=== PATIENT | female | born 1985 | race Caucasian/White ===

== ENCOUNTER 2023-04-14 09:31 | Emergency (ER) | payer BC, SELFPAY ==
[2023-04-14 09:42] VITALS: BP 143/95; PULSE 96; RESP 18; TEMP 36.7; O2SAT 98; BMI 46.3
--- NOTE | 2023-04-14 10:37 | ED_ITS ---
HPI - Abdominal Pain General: Chief Complaint: Abdominal Pain Stated Complaint: abd pain Time Seen by Provider: 04/14/23 10:15 Source: patient Mode of arrival: ambulatory History of Present Illness: 38-year-old female presents emergency complaining of right upper quadrant abdominal pain she said for the last 3 days she has been an ongoing issue she is vacationing in the area before she had come here for vacation she had seen her primary care doctor the done lab work including liver functions and pancreas enzymes which she reports are normal. She been scheduled for a gallbladder ultrasound has not yet been completed. She is noticed just about anything she eats seems to worsen her symptoms. She denies any fever dysuria urgency or frequency she is currently having her period but has no pelvic pain or cramping. She denies any nausea vomiting diarrhea no hematochezia or melena. MD elicited complaint: abdominal pain Onset (ago): week(s) Pain Consistency: constant Location: RUQ Severity: severe Quality: cramping Radiation: none Exacerbating factors: nothing Relieving factors: nothing Associated Symptoms: Reports bloating and nausea; Denies anorexia, chills, GI cramping, dyspepsia, dysuria, fever(s), heartburn, hematuria, loose stools, poor appetite, syncope and vomiting Review of Systems Const: Denies: fever(s) or chills Card: Denies: chest pain, palpitations or syncope Resp: Denies: dyspnea, productive cough or non-productive cough GI: Reports: abdominal pain, nausea and bloating; Denies: vomiting, heartburn or GI cramping : Denies: dysuria, urinary frequency, urinary urgency or hematuria Musc: Denies: neck pain or back pain Skin/Breast: Denies: rash or pruritus Physical Exam Const: GENERAL APPEARANCE: cooperative and comfortable ORIENTATION/CONSCIOU SNESS: Yes awake, Yes oriented to person, Yes oriented to place and Yes oriented to time HENMT: COMMON NORMALS: normocephalic, atraumatic and hearing grossly normal bilaterally HEAD & SCALP: normocephalic and atraumatic Resp: COMMON NORMALS: normal respiratory effort, No retractions, No use of accessory muscles and clear to auscultation bilaterally AUSCULTATION: clear to auscultation bilaterally Cardio: COMMON NORMALS: regular rate, regular rhythm and No murmurs present (Cardio) RATE: regular rate RHYTHM: regular rhythm GI: COMMON NORMALS: Soft to palpation and No hepatosplenomegaly present AUSCULTATION: Yes normoactive bowel sounds PALPATION: Yes Soft to palpation, No Tenderness to palpation present (GI), No Guarding due to palpation present (GI) and Yes No hepatosplenomegaly present Extremity: COMMON NORMALS: normal to inspection, capillary refill normal, no clubbing, cyanosis or edema, no calf tenderness and no pedal edema Neuro: SENSORIUM/ORIENTATION: Yes oriented to person, Yes oriented to place and Yes oriented to time Skin: COMMON NORMALS: no rashes or lesions noted GENERAL SKIN EXAM: no rashes or lesions noted Course Vital Signs: Vital signs: Vital Signs Temperature 98.1 F 04/14/23 17:07 Pulse Rate 91 04/14/23 17:07 Respiratory Rate 16 04/14/23 17:07 Blood Pressure 139/83 04/14/23 17:07 Pulse Oximetry 99 04/14/23 17:07 Oxygen Delivery Me thod Room Air 04/14/23 09:42 MDM - Abdominal Pain Medical Decision Making Patient has biliary colic symptoms she did have some blood in her urine CT did not show any evidence of nephrolithiasis or renal ureteral or bladder pathology. We will discharge patient home recommend she follow-up with her primary care doctor she will likely need a HIDA scan ultrasound of the gallbladder was negative for cholelithiasis she is symptom-free at this time discussed things to avoid in her diet that may exacerbate gave her hydrocodone and antiemetics to use as needed. Medical Records I reviewed the patient's medical records. Lab Data I reviewed the patient's lab results. 04/14/23 10:54 04/14/23 10:54 Labs/Radiology: Radiology Impressions Gallbladder Ultrasound 04/14/23 11:29 IMPRESSION: No acute sonographic findings. Abdomen/Pelvis CT 04/14/23 15:36 IMPRESSION: 1. Limited noncontrast examination without CT evidence of acute intra-abdominal or pelvic pathology. 2. Mild hepatomegaly. 3. Additional findings, as above. Laboratory Results WBC 9.7 10^3/uL (4.0-10.0) 04/14/23 10:54 RBC 4.43 10^6/uL (4.1-5.3) 04/14/23 10:54 Hgb 12.9 g/dL (11.5-15.3) 04/14/23 10:54 Hct 39.7 % (37.0-47.0) 04/14/23 10:54 MCV 89.6 fl (81-99) 04/14/23 10:54 MCH 29.1 pg (28.0-34.0) 04/14/23 10:54 MCHC 32.5 g/dL (30.0-36.0) 04/14/23 10:54 RDW 13.2 % (12.1-15.1) 04/14/23 10:54 Plt Count 372 10^3/cmm (130-400) 04/14/23 10:54 MPV 8.4 fL (7.4-10.4) 04/14/23 10:54 Neut % (Auto) 64.9 % 04/14/23 10:54 Lymph % (Auto) 25.0 % 04/14/23 10:54 [place] % (Auto) 8.9 % 04/14/23 10:54 Eos % (Auto) 0.6 % 04/14/23 10:54 Baso % (Auto) 0.2 % 04/14/23 10:54 Neut # (Auto) 6.27 10^3/uL (1.8-7.7) 04/14/23 10:54 Lymph # (Auto) 2.4 10^3/uL (0.8-4.8) 04/14/23 10:54 [place] # (Auto) 0.9 10^3/uL (0.2-0.9) 04/14/23 10:54 Eos # (Auto) 0.1 10^3/uL (0.0-0.8) 04/14/23 10:54 Baso # (Auto) 0.0 10^3/uL (0.0-0.1) 04/14/23 10:54 Nucleated RBC % (auto) 0 % 04/14/23 10:54 Nucleated RBCs # 0.0 /100WBC 04/14/23 10:54 Sodium 135 mmol/L (136-145) L 04/14/23 10:54 Potassium 3.4 mmol/L (3.5-5.1) L 04/14/23 10:54 Chloride 97 mmol/L (98-107) L 04/14/23 10:54 Carbon Dioxide 27 mmol/L (22-29) 04/14/23 10:54 Anion Gap 14.4 (5-19) 04/14/23 10:54 BUN 11 mg/dL (6-20) 04/14/23 10:54 Creatinine 0.7 mg/dL (0.5-0.9) 04/14/23 10:54 GFR Calculation 93.6 mL/min (90-130) 04/14/23 10:54 Glucose 98 mg/dL (65-115) 04/14/23 10:54 POC Glucose 71 mg/dL (70-110) 04/14/23 15:11 Calculated Osmolality 279 mOsm/kg (285-295) L 04/14/23 10:54 Calcium 9.0 mg/dL (8.5-10.5) 04/14/23 10:54 Total Bilirubin 0.2 mg/dL (0.15-1.2) 04/14/23 10:54 AST 12 U/L (0-32) 04/14/23 10:54 ALT 15 U/L (0-33) 04/14/23 10:54 Alkaline Phosphatase 77 U/L (35-105) 04/14/23 10:54 Total Protein 8.0 g/dL (6.6-8.7) 04/14/23 10:54 Albumin 4.3 g/dL (3.5-5.2) 04/14/23 10:54 Globulin 3.7 g/dL (1.3-4.6) 04/14/23 10:54 Lipase 27 U/L (13-60) 04/14/23 10:54 HCG, Qual Negative (Negative) 04/14/23 10:54 Urine Color Straw (Yellow) 04/14/23 14:00 Urine Appearance Clear (CLEAR) 04/14/23 14:00 Urine pH 7 (5-7) 04/14/23 14:00 Ur Specific [place] 1.010 (1.005-1.030) 04/14/23 14:00 Urine Protein Neg (Negative) 04/14/23 14:00 Urine Glucose (UA) Norm (Normal) 04/14/23 14:00 Urine Ketones Negative (Negative) 04/14/23 14:00 Urine Blood 3+ (Negative) H 04/14/23 14:00 Urine Nitrate Negative (Negative) 04/14/23 14:00 Urine Bilirubin Neg (Negative) 04/14/23 14:00 Urine Urobilinogen Norm mg/dL (Negative) 04/14/23 14:00 Ur Leukocyte Esterase Negative (Negative) 04/14/23 14:00 Urine RBC 25-40 /hpf (0-2) H 04/14/23 14:00 Urine WBC None /hpf (0-5) 04/14/23 14:00 Ur Squamous Epith Cells 0-4 /hpf (0-5) H 04/14/23 14:00 Amorphous Sediment Not Reportable 04/14/23 14:00 Urine Bacteria Trace /hpf (NONE) 04/14/23 14:00 Discharge Plan Discharge Patient Disposition: Home Clinical Impression: Biliary colic Condition: Stable Prescriptions: New hydrocodone-acetaminophen 5-325 mg tablet 1 tab PO Q6H PRN (Reason: pain) Qty: 20 0RF promethazine 25 mg tablet 25 mg PO Q6H PRN (Reason: nausea and vomiting) Qty: 20 0RF No Action omeprazole 40 mg capsule,delayed release(DR/EC) 40 mg PO DAILY ergocalciferol (vitamin D2) 1,250 mcg (50,000 unit) capsule 1,250 mcg PO Q7D Rx Instructions: ON SUNDAY azelastine 137 mcg (0.1 %) aerosol,spray 1 spray INTRANASAL BID fluticasone propionate 50 mcg/actuation spray,suspension 1 spray INTRANASAL DAILY Claritin 10 mg Tablet 10 mg PO DAILY PRN (Reason: Allergy Symptoms) bupropion HCl 150 mg tablet extended release 24 hr 150 mg PO DAILY Women's Daily Formula 18 mg iron-400 mcg-500 mg Ca Tablet 1 tab PO DAILY Discharge Orders: Discharge ED (Routine); Ordered 04/14/23 Ordered By: Alexandre Degroot Discharge Diet: As Directed Patient Instructions: Biliary Colic (ED), Biliary Dyskinesia (DC), Opioid S afety, Pain Management Coding Level of Care Code ED [facility] Teacher for Kwasi Velazquez
[2023-04-14] MEDS: sodium chloride 0.9% 1,000 ML 999 ML IV (10:56)
[2023-04-14] MEDS: ondansetron 2 mg/ML SDV 2 mL 4 MG IVP (10:56)
[2023-04-14] MEDS: morphine 4 mg/mL SDV 1 mL IVP (10:56)
[2023-04-14 11:04] LABS: Basophils % 0.2 %; Eosinophils # 0.1 10^3/uL (0.0-0.8); Eosinophils % 0.6 %; Hematocrit 39.7 % (37.0-47.0); Hemoglobin 12.9 g/dL (11.5-15.3); Lymphocytes # 2.4 10^3/uL (0.8-4.8); Mean Corpuscular HGB Conc 32.5 g/dL (30.0-36.0); Mean Corpuscular Hemoglobin 29.1 pg (28.0-34.0); Mean Corpuscular Volume 89.6 fl (81-99); Mean Platelet Volume 8.4 fL (7.4-10.4); Monocytes # 0.9 10^3/uL (0.2-0.9); Monocytes % 8.9 %; Neutrophils # 6.27 10^3/uL (1.8-7.7); Neutrophils % 64.9 %; Nucleated Red Blood Cells % 0 %; Platelet Count 372 10^3/cmm (130-400); Red Blood Count 4.43 10^6/uL (4.1-5.3); Red Cell Distribution Width 13.2 % (12.1-15.1); White Blood Count 9.7 10^3/uL (4.0-10.0)
[2023-04-14 11:17] VITALS: BP 129/85; RESP 16; O2SAT 96
--- NOTE | 2023-04-14 11:29 | USR_ITS ---
PROCEDURE INFORMATION: Exam: US Abdomen, Limited; Right Upper Quadrant Exam date and time: 04/14/2023 12:01 PM Age: 38 years old Clinical indication: Abdominal pain; Generalized; Additional info: Abd pain TECHNIQUE: Imaging protocol: Real time ultrasound of the abdomen with image documentation. Limited exam focused on the right upper quadrant. COMPARISON: No relevant prior studies available. FINDINGS: Liver: Unremarkable. Gallbladder: No gallstones. No gallbladder wall thickening or pericholecystic fluid. Negative sonographic Maher's sign, as per the performing education and training manager. Biliary ducts: Normal. No stones. No dilation. Pancreas: Unremarkable as visualized. Right kidney: No mass. No definite stones. No hydronephrosis. US/US gall bladder [id number] IMPRESSION: No acute sonographic findings.
[2023-04-14 11:30] LABS: Alanine Aminotransferase 15 U/L (0-33); Albumin Level 4.3 g/dL (3.5-5.2); Alkaline Phosphatase 77 U/L (35-105); Anion Gap 14.4 (5-19); Aspartate Amino Transferase 12 U/L (0-32); Blood Urea Nitrogen 11 mg/dL (6-20); Carbon Dioxide 27 mmol/L (22-29); Chloride 97 mmol/L (98-107); Globulin 3.7 g/dL (1.3-4.6); Glomerular Filtration Rate 93.6 mL/min (90-130); Glucose 98 mg/dL (65-115); HCG, Serum Qual Negative (Negative); Lipase 27 U/L (13-60); Osmolality Calculated 279 mOsm/kg (285-295); Potassium 3.4 mmol/L (3.5-5.1); Sodium 135 mmol/L (136-145); Total Bilirubin 0.2 mg/dL (0.15-1.2)
[2023-04-14 11:44] LABS: Add Urine Microscopic? YES; Bilirubin Urine Neg (Negative); Blood Urine 3+ (Negative); Glucose Urine UA Norm (Normal); Ketones Urine Negative (Negative); Leukocyte Esterase Urine Negative (Negative); Nitrate Urine Negative (Negative); Protein Urine Neg (Negative); RBC Urine 15-25 /hpf (0-2); Specific Gravity, Urine 1.005 (1.005-1.030); Urine Appearance Clear (CLEAR); Urine Color Straw (Yellow); Urobilinogen Urine Norm (Negative); WBC Urine RARE /hpf (0-5); pH Urine 7 (5-7)
[2023-04-14 11:45] LABS: Add Urine Culture? Yes; Bacteria Urine TRACE /hpf
[2023-04-14 12:45] VITALS: BP 132/82; PULSE 84; RESP 16; O2SAT 100
[2023-04-14 15:14] LABS: Glucose Point of Care 71 mg/dL (70-110)
[2023-04-14 15:21] LABS: Add Urine Microscopic? YES; Bilirubin Urine Neg (Negative); Blood Urine 3+ (Negative); Glucose Urine UA Norm (Normal); Ketones Urine Negative (Negative); Leukocyte Esterase Urine Negative (Negative); Nitrate Urine Negative (Negative); Protein Urine Neg (Negative); Urine Appearance Clear (CLEAR); Urine Color Straw (Yellow); Urobilinogen Urine Norm (Negative); pH Urine 7 (5-7)
[2023-04-14 15:22] LABS: Bacteria Urine TRACE /hpf; RBC Urine 25-40 /hpf (0-2); Squamous Epithelial Cell Urine 0-4 /hpf (0-5)
[2023-04-14 15:23] LABS: Add Urine Culture? Yes
[2023-04-14] MEDS: acetaminophen 500 mg Tablet 1000 MG PO (15:31)
--- NOTE | 2023-04-14 15:36 | CTR_ITS ---
PROCEDURE INFORMATION: Exam: CT Abdomen And Pelvis Without Contrast Exam date and time: 04/14/2023 3:44 PM Age: 38 years old Clinical indication: Abdominal pain; Localized; Right upper quadrant (ruq); Additional info: Flank pain TECHNIQUE: Imaging protocol: Computed tomography of the abdomen and pelvis without contrast. Axial, coronal and sagittal reformatted images were created and reviewed. Radiation optimization: All CT scans at this facility use at least one of these dose optimization techniques: automated exposure control; mA and/or kV adjustment per patient size (includes targeted exams where dose is matched to clinical indication); or iterative reconstruction. REPORTING DATA: Count of CT and Cardiac NM exams in prior 12 months: This patient has received 0 known CTs and 0 known cardiac nuclear medicine studies in the 12 months prior to the current study. COMPARISON: US gall bladder [id number] 04/14/2023 12:01 PM RADIATION DOSE METRICS: Total DLP (mGy-cm): 1118.47 FINDINGS: Diaphragm: Small hiatal hernia. Liver: Mild hepatomegaly. Gallbladder and bile ducts: No radiodense gallstones. No biliary ductal dilatation. Pancreas: Unremarkable. Spleen: Coarse calcified splenic granuloma. Adrenal glands: Normal. No mass. Kidneys and ureters: No mass. No radiodense calculi. No hydronephrosis. Stomach and bowel: No bowel wall thickening. No obstruction. No pneumatosis. Appendix: Normal. Intraperitoneal space: No free fluid. No organized fluid collection. No free air. Vasculature: Unremarkable. No aneurysm. Lymph nodes: No pathologically enlarged lymph nodes. Urinary bladder: Unremarkable as visualized. Reproductive: Probable dominant right ovarian follicle. Bones/joints: No acute osseous abnormality. Mild degenerative changes. Soft tissues: Tiny, fat containing umbilical hernia. CT/CT kidney stone [id number] IMPRESSION: 1. Limited noncontrast examination without CT evidence of acute intra-abdominal or pelvic pathology. 2. Mild hepatomegaly. 3. Additional findings, as above.
[2023-04-14 17:06] VITALS: BP 139/83; PULSE 91; RESP 16; O2SAT 99
[2023-04-14 17:07] VITALS: BP 139/83; PULSE 91; RESP 16; TEMP 36.7; O2SAT 99
== END 2023-04-14 17:07 | disposition home or self-care (01) ==
PROVIDERS: Physician Assistant; Emergency Provider Family Medicine
DX: K80.50 Calculus of bile duct without cholangitis or cholecystitis without obstruction (principal); R10.11 Right upper quadrant pain
CPT/HCPCS: 36416; 74176; 76705; 80053; 81001; 82962; 83690; 84703; 85025; 87086; 96361; 96374; 96375; 99285; J2270; J2405; J7030